=== PATIENT | male | born 1945 | race Caucasian/White ===

== ENCOUNTER 2016-06-22 14:34 | Emergency (ER) | payer MEDICARE ==
[~2016-06-22 14:34] MED LIST: ASPI81CH PO; LOVA40TA PO
[2016-06-22] MEDS ORDERED: IPRATROPIUM 0.5MG/ALBUTEROL 2.5MG INH SOL UD 3ML (DUONEB)(J7620) As Ordered ONE (15:41)
[2016-06-22] MEDS ORDERED: predniSONE 20 MG TAB As Ordered ONE (15:46)
[2016-06-22] MEDS ORDERED: ACETAMINOPHEN 325 MG TAB As Ordered ONE (16:23)
--- NOTE | 2016-06-22 16:35 | EDDOCDS ---
Physician Documentation [facility] Name: Man Amezquita Age: 71 yrs Sex: Male : 1945 Arrival Date: 06/22/2016 Time: 14:34 Bed I5 / M5 Private MD: Gurinder Umanzor M.D. Disposition: 06/22/16 16:11 Discharged to Home/Self Care. Impression: Acute sinusitis, Acute bronchitis, Acute tonsillitis. - Condition is Stable. - Discharge Instructions: Tonsillitis, Wiuf-lu-Jpxv, Sinusitis, Pjks-st-Ynxt, Acute Bronchitis, Umqa-fe-Zjhe. - Prescriptions for Prednisone 20 mg Oral Tablet - take 3 tablet by ORAL route once daily for 5 days; 15 tablet. Claritin 10 mg Oral Tablet - take 1 tablet by ORAL route once daily As needed; 30 tablet. Mucinex 600 mg - take 1 tablet by ORAL route 2 times per day; 30 tablet. Albuterol Sulfate 90 mcg/actuation Inhalation HFA Aerosol Inhaler - inhale 2 puff by INHALATION route every 4 hours As needed; 1 Inhaler. - Medication Reconciliation, Local Pharmacy Hours form. - Follow up: Gurinder Umanzor; When: 1 - 2 days; Reason: Recheck today's complaints, Continuance of care. Follow up: Emergency Department; Reason: Worsening of conditions. - Problem is new. - Symptoms have improved. Historical: - Allergies: No known drug Allergies; - Home Meds: 1. hydrocodone-chlorpheniramine 2.5-2 mg/5 mL oral liqd as needed 2. amoxicillin-pot clavulanate 875-125 mg Oral tab every 12 hours - PMHx: none; - PSHx: TURP; punch biopsy; - Social history: Smoking status: Patient states was never smoker of tobacco. No barriers to communication noted, The patient speaks fluent Kenyan, Speaks appropriately for age. - Family history: Not pertinent. - : The pt / caregiver states he / she is not on anticoagulants. Home medication list is obtained from the patient. - Exposure Risk Screening:: None identified. Vital Signs: 06/22 14:37 BP 173 / 90; Pulse 106; Resp 18 S; Temp 98.0(O); Pulse Ox 96% on R/A; Weight 78.02 kg / dd6 172 lbs (R); Height 5 ft. 8 in. (172.72 cm) (R); 16:25 BP 140 / 84; Pulse 107; Resp 20; Temp 100.3(O); Pulse Ox 92% on R/A; Pain 8/10; jml1 14:37 Body Mass Index 26.15 (78.02 kg, 172.72 cm) dd6 MDM: 15:22 Financial registration complete. lg 15:26 [facility] Payment Agreement was scanned into [employer] and attached to record. lg 15:36 predniSONE 60 mg PO once; administer with food or milk ordered. ef1 15:36 Albuterol-Ipratropium 3 ml Inhalation once ordered. ef1 15:36 Call Respiratory ordered. ef1 15:39 Call Respiratory complete. dls 16:20 Acetaminophen Tablet 975 mg PO once ordered. ef1 Administered Medications: 15:45 Drug: Albuterol-Ipratropium 3 ml [ipratropium-albuterol 0.5 mg-3 mg(2.5 mg base)/3 mL js11 nebulization soln (3 mL)] Route: Inhalation; 15:54 Drug: predniSONE 60 mg [prednisone 20 mg tablet (3 tabs)] Route: PO; dls 16:32 Drug: Acetaminophen 975 mg [acetaminophen 325 mg tablet (3 tabs)] Route: PO; dls Signatures: Tangela Fernandes, JOE RN dls Letitia Mcnulty, Giuseppe Reg lg Yahaira Mckeon, PA-C PA-C ef1 Erin Daniels RN RN hs1 Drake Montague js11 The chart was reviewed and I authenticate all verbal orders and agree with the evaluation and treatment provided.Corrections: (The following items were deleted from the chart) 15:36 15:21 Strep Screen, Nursing ordered. ef1 ef1 Attachments: 15:26 [facility] Payment Agreement lg MTDD
--- NOTE | 2016-06-22 16:35 | EDDOCDS ---
Nurse's Notes [facility] Name: Man Amezquita Age: 71 yrs Sex: Male : 1945 Arrival Date: 06/22/2016 Time: 14:34 Bed I5 / M5 Private MD: Gurinder Umanzor M.D. Diagnosis: Acute sinusitis;Acute bronchitis;Acute tonsillitis Presentation: 06/22 14:49 Presenting complaint: Patient states: recent sore throat low grade fever and was seen hs1 at urgent care. Patient reports unable to sleep recently. patient tried taking azelastine and throat burned and coughed multiple times and was gagging. Patient reports having a hard time swallowing now and hurts. Patient also states was able to get ABX down and Tussinex down before using nose spray. Adult Sepsis Screening: The patient does not have new or worsening altered mentation. Patient's respiratory rate is less than 22. Systolic blood pressure is greater than 100. Patient has a qSOFA score of 0- Negative Sepsis Screen. Suicide/Homicide risk assessment- the patient denies having any suicidal and/or homicidal ideations and does not present with any other emotional, behavioral or mental health complaints. Status: Patient is not a nutritional services director or dependent. Transition of care: patient was not received from another setting of care. 14:49 Acuity: SHANNON Level 4 hs1 14:49 Method Of Arrival: Walkin/Carried/Asstd hs1 Triage Assessment: 14:57 General: Appears in no apparent distress, Behavior is anxious, cooperative. Pain: hs1 Location: throat Quality of pain is described as burning. Neurological: Level of Consciousness is awake, alert, obeys commands. Respiratory: Airway is patent Respiratory effort is even, unlabored, Respiratory pattern is regular, symmetrical. Derm: Skin is pink, warm & dry. normal. Historical: - Allergies: No known drug Allergies; - Home Meds: 1. hydrocodone-chlorpheniramine 2.5-2 mg/5 mL oral liqd as needed 2. amoxicillin-pot clavulanate 875-125 mg Oral tab every 12 hours - PMHx: none; - PSHx: TURP; punch biopsy; - Social history: Smoking status: Patient states was never smoker of tobacco. No barriers to communication noted, The patient speaks fluent Wolof, Speaks appropriately for age. - Family history: Not pertinent. - : The pt / caregiver states he / she is not on anticoagulants. Home medication list is obtained from the patient. - Exposure Risk Screening:: None identified. Screenin:18 Screening information is obtained from the patient. Fall risk: No risks identified. dls Assistance ADL's: requires no assistance with activities of daily living. Abuse/DV Screen: The patient / caregiver reports he/she is: not in a situation that causes fear, pain or injury. Nutritional screening: No deficits noted. Advance Directives: Currently, there is no health care proxy. There is no active DNR order. There is no living will. There is no Power of Transport Tank Technician. Advance directive information has not previously been placed in an [facility] medical record. home support is adequate. Assessment: 15:16 General: Pt brought into exam room pt had choking episode at home after taking dls augmentin and using nasal spray. At present time pt appears anxious lung sounds CTA all lobes pt able to tolerate his own secretions without difficulty family at bedside pt awaiting evaluation by provider.. 15:54 General: Neb treatment completed pt tolerated well medicated pt po per order. Pt dls speaking in full sentences without difficulty.. Vital Signs: 14:37 BP 173 / 90; Pulse 106; Resp 18 S; Temp 98.0(O); Pulse Ox 96% on R/A; Weight 78.02 kg dd6 (R); Height 5 ft. 8 in. (172.72 cm) (R); 16:25 BP 140 / 84; Pulse 107; Resp 20; Temp 100.3(O); Pulse Ox 92% on R/A; Pain 8/10; jml1 14:37 Body Mass Index 26.15 (78.02 kg, 172.72 cm) dd6 Vitals: 14:37 Log In Time: June 22, 2016 at 14:35. dd6 ED Course: 14:37 Patient visited by Brendon Willett PCA. dd6 14:37 Gurinder Umanzor is Private Physician. dd6 14:37 Patient moved to Waiting dd6 14:38 Patient moved to Pre RCE dd6 14:54 Triage Initiated hs1 14:59 Patient moved to I5 / M5 hs1 15:15 [facility] ef1 15:15 Doug Chandler MD is Attending Physician. ef1 15:15 Patient visited by Yahaira Mckeon PA-C. ef1 15:18 The patient / caregiver is instructed regarding the plan of care and ED course. dls Accompanied by Family Member, Patient has correct armband on for positive identification. Bed in low position. Call light in reach. Side rails up X 1. 15:26 Patient name changed from Man\S\Nasir\S\Amezquita\S\ to Man\S\E\S\Amezquita. EDMS 15:26 [facility] Payment Agreement was scanned into [employer] and attached to record. lg 15:46 Patient visited by Yahaira Mckeon PA-C. ef1 16:11 Patient visited by Yahaira Mckeon PA-C. ef1 16:11 Gurinder Umanzor is Referral Physician. ef1 16:26 Patient visited by Jayson Bower. jml1 16:33 No IV's were initiated during this patient's visit. No procedures done that require dls assistance. Administered Medications: 15:45 Drug: Albuterol-Ipratropium 3 ml [ipratropium-albuterol 0.5 mg-3 mg(2.5 mg base)/3 mL js11 nebulization soln (3 mL)] Route: Inhalation; 15:54 Drug: predniSONE 60 mg [prednisone 20 mg tablet (3 tabs)] Route: PO; dls 16:32 Drug: Acetaminophen 975 mg [acetaminophen 325 mg tablet (3 tabs)] Route: PO; dls RT: 15:45 Initial Med Neb Given as ordered Patient was instructed and evaluated on procedure js11 Patient tolerated procedure well without adverse effect. Oxygen is room air. Respiratory: Breath sounds are clear bilaterally. Order Results: There are currently no results for this order. Outcome: 16:11 Discharge ordered by Provider. ef1 16:32 Discharge Assessment: Patient awake, alert and oriented x 3. No cognitive and/or dls functional deficits noted. Patient verbalized understanding of disposition instructions. patient administered narcotics - no. The following High Risk Discharge criteria are identified: None. Discharged to home ambulatory. Condition: stable Condition: improved. Discharge instructions given to patient, Instructed on discharge instructions, follow up and referral plans. medication usage, Demonstrated understanding of instructions, medications, Pt was receptive of discharge instructions/ teaching. Prescriptions given X 4. No special radiology studies were completed. Property sent home with patient. 16:33 Patient left the ED. dls Signatures: Dispatcher [employer] Tangela Parmar, RN RN dls Letitia Mcnulty, Giuseppe Reg lg Brendon Willett, DIRECTOR SALES AND TRADE MARKETING DIRECTOR SALES AND TRADE MARKETING dd6 Yahaira Mckeon, PAMichaelC PA-C ef1 Erin Daniels RN RN hs1 Drake Montague js11 Jayson Bower MTDD
--- NOTE | 2016-06-24 17:34 | EDDOCDS ---
Physician Documentation [facility] Name: Man Amezquita Age: 71 yrs Sex: Male : 1945 Arrival Date: 06/22/2016 Time: 14:34 Bed I5 / M5 Private MD: Gurinder Umanzor M.D. Disposition: 06/22/16 16:11 Discharged to Home/Self Care. Impression: Acute sinusitis, Acute bronchitis, Acute tonsillitis. - Condition is Stable. - Discharge Instructions: Tonsillitis, Pcoi-ge-Jpac, Sinusitis, Ypwy-wq-Vvba, Acute Bronchitis, Etbj-qn-Lpox. - Prescriptions for Prednisone 20 mg Oral Tablet - take 3 tablet by ORAL route once daily for 5 days; 15 tablet. Claritin 10 mg Oral Tablet - take 1 tablet by ORAL route once daily As needed; 30 tablet. Mucinex 600 mg - take 1 tablet by ORAL route 2 times per day; 30 tablet. Albuterol Sulfate 90 mcg/actuation Inhalation HFA Aerosol Inhaler - inhale 2 puff by INHALATION route every 4 hours As needed; 1 Inhaler. - Medication Reconciliation, Local Pharmacy Hours form. - Follow up: Gurinder Umanzor; When: 1 - 2 days; Reason: Recheck today's complaints, Continuance of care. Follow up: Emergency Department; Reason: Worsening of conditions. - Problem is new. - Symptoms have improved. Historical: - Allergies: No known drug Allergies; - Home Meds: 1. hydrocodone-chlorpheniramine 2.5-2 mg/5 mL oral liqd as needed 2. amoxicillin-pot clavulanate 875-125 mg Oral tab every 12 hours - PMHx: none; - PSHx: TURP; punch biopsy; - Social history: Smoking status: Patient states was never smoker of tobacco. No barriers to communication noted, The patient speaks fluent Sri Lankan, Speaks appropriately for age. - Family history: Not pertinent. - : The pt / caregiver states he / she is not on anticoagulants. Home medication list is obtained from the patient. - Exposure Risk Screening:: None identified. Vital Signs: 06/22 14:37 BP 173 / 90; Pulse 106; Resp 18 S; Temp 98.0(O); Pulse Ox 96% on R/A; Weight 78.02 kg / dd6 172 lbs (R); Height 5 ft. 8 in. (172.72 cm) (R); 16:25 BP 140 / 84; Pulse 107; Resp 20; Temp 100.3(O); Pulse Ox 92% on R/A; Pain 8/10; jml1 14:37 Body Mass Index 26.15 (78.02 kg, 172.72 cm) dd6 MDM: 15:22 Financial registration complete. lg 15: [facility] Payment Agreement was scanned into [employer] and attached to record. lg 15:36 predniSONE 60 mg PO once; administer with food or milk ordered. ef1 15:36 Albuterol-Ipratropium 3 ml Inhalation once ordered. ef1 15:36 Call Respiratory ordered. ef1 15:39 Call Respiratory complete. dls 16:20 Acetaminophen Tablet 975 mg PO once ordered. ef1 06/23 12:42 T-Sheet-- Draft Copy was scanned into [employer] and attached to record. gb Administered Medications: 06/22 15:45 Drug: Albuterol-Ipratropium 3 ml [ipratropium-albuterol 0.5 mg-3 mg(2.5 mg base)/3 mL js11 nebulization soln (3 mL)] Route: Inhalation; 15:54 Drug: predniSONE 60 mg [prednisone 20 mg tablet (3 tabs)] Route: PO; dls 16:32 Drug: Acetaminophen 975 mg [acetaminophen 325 mg tablet (3 tabs)] Route: PO; dls Signatures: Tangela Fernandes RN RN dls Sonja Martinez, Reg Reg gb Letitia Mcnulty, Reg Reg lg Yahaira Mckeon, PA-C PA-C ef1 Erin Daniels, RN RN hs1 Drake Montague js11 The chart was reviewed and I authenticate all verbal orders and agree with the evaluation and treatment provided.Corrections: (The following items were deleted from the chart) 15:36 15:21 Strep Screen, Nursing ordered. ef1 ef1 Attachments: 15:26 [facility] Payment Agreement 06/23 12:42 T-Sheet-- Draft Copy gb Chart Complete MTDD
--- NOTE | 2016-06-24 17:34 | EDDOCDS ---
Physician Documentation [facility] Name: Man Amezquita Age: 71 yrs Sex: Male : 1945 Arrival Date: 06/22/2016 Time: 14:34 Bed I5 / M5 Private MD: Gurinder Umanzor M.D. Disposition: 06/22/16 16:11 Discharged to Home/Self Care. Impression: Acute sinusitis, Acute bronchitis, Acute tonsillitis. - Condition is Stable. - Discharge Instructions: Tonsillitis, Jicd-mw-Adux, Sinusitis, Tcum-cw-Wumh, Acute Bronchitis, Nbzj-uf-Uarx. - Prescriptions for Prednisone 20 mg Oral Tablet - take 3 tablet by ORAL route once daily for 5 days; 15 tablet. Claritin 10 mg Oral Tablet - take 1 tablet by ORAL route once daily As needed; 30 tablet. Mucinex 600 mg - take 1 tablet by ORAL route 2 times per day; 30 tablet. Albuterol Sulfate 90 mcg/actuation Inhalation HFA Aerosol Inhaler - inhale 2 puff by INHALATION route every 4 hours As needed; 1 Inhaler. - Medication Reconciliation, Local Pharmacy Hours form. - Follow up: Gurinder Umanzor; When: 1 - 2 days; Reason: Recheck today's complaints, Continuance of care. Follow up: Emergency Department; Reason: Worsening of conditions. - Problem is new. - Symptoms have improved. Historical: - Allergies: No known drug Allergies; - Home Meds: 1. hydrocodone-chlorpheniramine 2.5-2 mg/5 mL oral liqd as needed 2. amoxicillin-pot clavulanate 875-125 mg Oral tab every 12 hours - PMHx: none; - PSHx: TURP; punch biopsy; - Social history: Smoking status: Patient states was never smoker of tobacco. No barriers to communication noted, The patient speaks fluent Slovak, Speaks appropriately for age. - Family history: Not pertinent. - : The pt / caregiver states he / she is not on anticoagulants. Home medication list is obtained from the patient. - Exposure Risk Screening:: None identified. Vital Signs: 06/22 14:37 BP 173 / 90; Pulse 106; Resp 18 S; Temp 98.0(O); Pulse Ox 96% on R/A; Weight 78.02 kg / dd6 172 lbs (R); Height 5 ft. 8 in. (172.72 cm) (R); 16:25 BP 140 / 84; Pulse 107; Resp 20; Temp 100.3(O); Pulse Ox 92% on R/A; Pain 8/10; jml1 14:37 Body Mass Index 26.15 (78.02 kg, 172.72 cm) dd6 MDM: 15:22 Financial registration complete. lg 15: [facility] Payment Agreement was scanned into [employer] and attached to record. lg 15:36 predniSONE 60 mg PO once; administer with food or milk ordered. ef1 15:36 Albuterol-Ipratropium 3 ml Inhalation once ordered. ef1 15:36 Call Respiratory ordered. ef1 15:39 Call Respiratory complete. dls 16:20 Acetaminophen Tablet 975 mg PO once ordered. ef1 06/23 12:42 T-Sheet-- Draft Copy was scanned into [employer] and attached to record. gb Administered Medications: 06/22 15:45 Drug: Albuterol-Ipratropium 3 ml [ipratropium-albuterol 0.5 mg-3 mg(2.5 mg base)/3 mL js11 nebulization soln (3 mL)] Route: Inhalation; 15:54 Drug: predniSONE 60 mg [prednisone 20 mg tablet (3 tabs)] Route: PO; dls 16:32 Drug: Acetaminophen 975 mg [acetaminophen 325 mg tablet (3 tabs)] Route: PO; dls Signatures: Tangela Fernandes RN RN dls Sonja Martinez, Reg Reg gb Letitia Mcnulty, Reg Reg lg Yahaira Mckeon, PA-C PA-C ef1 Erin Daniels, RN RN hs1 Drake Montague js11 The chart was reviewed and I authenticate all verbal orders and agree with the evaluation and treatment provided.Corrections: (The following items were deleted from the chart) 15:36 15:21 Strep Screen, Nursing ordered. ef1 ef1 Attachments: 15:26 [facility] Payment Agreement 06/23 12:42 T-Sheet-- Draft Copy gb Chart Complete MTDD
--- NOTE | 2016-06-24 17:34 | EDDOCDS ---
Nurse's Notes [facility] Name: Man Amezquita Age: 71 yrs Sex: Male : 1945 Arrival Date: 06/22/2016 Time: 14:34 Bed I5 / M5 Private MD: Gurinder Umanzor M.D. Diagnosis: Acute sinusitis;Acute bronchitis;Acute tonsillitis Presentation: 06/22 14:49 Presenting complaint: Patient states: recent sore throat low grade fever and was seen hs1 at urgent care. Patient reports unable to sleep recently. patient tried taking azelastine and throat burned and coughed multiple times and was gagging. Patient reports having a hard time swallowing now and hurts. Patient also states was able to get ABX down and Tussinex down before using nose spray. Adult Sepsis Screening: The patient does not have new or worsening altered mentation. Patient's respiratory rate is less than 22. Systolic blood pressure is greater than 100. Patient has a qSOFA score of 0- Negative Sepsis Screen. Suicide/Homicide risk assessment- the patient denies having any suicidal and/or homicidal ideations and does not present with any other emotional, behavioral or mental health complaints. Status: Patient is not a service electrician or dependent. Transition of care: patient was not received from another setting of care. 14:49 Acuity: SHANNON Level 4 hs1 14:49 Method Of Arrival: Walkin/Carried/Asstd hs1 Triage Assessment: 14:57 General: Appears in no apparent distress, Behavior is anxious, cooperative. Pain: hs1 Location: throat Quality of pain is described as burning. Neurological: Level of Consciousness is awake, alert, obeys commands. Respiratory: Airway is patent Respiratory effort is even, unlabored, Respiratory pattern is regular, symmetrical. Derm: Skin is pink, warm & dry. normal. Historical: - Allergies: No known drug Allergies; - Home Meds: 1. hydrocodone-chlorpheniramine 2.5-2 mg/5 mL oral liqd as needed 2. amoxicillin-pot clavulanate 875-125 mg Oral tab every 12 hours - PMHx: none; - PSHx: TURP; punch biopsy; - Social history: Smoking status: Patient states was never smoker of tobacco. No barriers to communication noted, The patient speaks fluent Spanish, Speaks appropriately for age. - Family history: Not pertinent. - : The pt / caregiver states he / she is not on anticoagulants. Home medication list is obtained from the patient. - Exposure Risk Screening:: None identified. Screenin:18 Screening information is obtained from the patient. Fall risk: No risks identified. dls Assistance ADL's: requires no assistance with activities of daily living. Abuse/DV Screen: The patient / caregiver reports he/she is: not in a situation that causes fear, pain or injury. Nutritional screening: No deficits noted. Advance Directives: Currently, there is no health care proxy. There is no active DNR order. There is no living will. There is no Power of Comic Illustrator. Advance directive information has not previously been placed in an [facility] medical record. home support is adequate. Assessment: 15:16 General: Pt brought into exam room pt had choking episode at home after taking dls augmentin and using nasal spray. At present time pt appears anxious lung sounds CTA all lobes pt able to tolerate his own secretions without difficulty family at bedside pt awaiting evaluation by provider.. 15:54 General: Neb treatment completed pt tolerated well medicated pt po per order. Pt dls speaking in full sentences without difficulty.. Vital Signs: 14:37 BP 173 / 90; Pulse 106; Resp 18 S; Temp 98.0(O); Pulse Ox 96% on R/A; Weight 78.02 kg dd6 (R); Height 5 ft. 8 in. (172.72 cm) (R); 16:25 BP 140 / 84; Pulse 107; Resp 20; Temp 100.3(O); Pulse Ox 92% on R/A; Pain 8/10; jml1 14:37 Body Mass Index 26.15 (78.02 kg, 172.72 cm) dd6 Vitals: 14:37 Log In Time: June 22, 2016 at 14:35. dd6 ED Course: 14:37 Patient visited by Brendon Willett PCA. dd6 14:37 Gurinder Umanzor is Private Physician. dd6 14:37 Patient moved to Waiting dd6 14:38 Patient moved to Pre RCE dd6 14:54 Triage Initiated hs1 14:59 Patient moved to I5 / M5 hs1 15:15 [facility]ke[facility] ef1 15:15 Doug Chandler MD is Attending Physician. ef1 15:15 Patient visited by Yahaira Mckeon PA-C. ef1 15:18 The patient / caregiver is instructed regarding the plan of care and ED course. dls Accompanied by Family Member, Patient has correct armband on for positive identification. Bed in low position. Call light in reach. Side rails up X 1. 15:26 Patient name changed from Man\S\Nasir\S\Amezquita\S\ to Man\S\E\S\Amezquita. EDMS 15:26 [facility] Payment Agreement was scanned into [employer] and attached to record. lg 15:46 Patient visited by Yahaira Mckeon PA-C. ef1 16:11 Patient visited by Yahaira Mckeon PA-C. ef1 16:11 Gurinder Umanzor is Referral Physician. ef1 16:26 Patient visited by Jayson Bower. jml1 16:33 No IV's were initiated during this patient's visit. No procedures done that require dls assistance. 06/23 12:42 T-Sheet-- Draft Copy was scanned into [employer] and attached to record. gb Administered Medications: 06/22 15:45 Drug: Albuterol-Ipratropium 3 ml [ipratropium-albuterol 0.5 mg-3 mg(2.5 mg base)/3 mL js11 nebulization soln (3 mL)] Route: Inhalation; 15:54 Drug: predniSONE 60 mg [prednisone 20 mg tablet (3 tabs)] Route: PO; dls 16:32 Drug: Acetaminophen 975 mg [acetaminophen 325 mg tablet (3 tabs)] Route: PO; dls RT: 15:45 Initial Med Neb Given as ordered Patient was instructed and evaluated on procedure js11 Patient tolerated procedure well without adverse effect. Oxygen is room air. Respiratory: Breath sounds are clear bilaterally. Order Results: There are currently no results for this order. Outcome: 16:11 Discharge ordered by Provider. ef1 16:32 Discharge Assessment: Patient awake, alert and oriented x 3. No cognitive and/or dls functional deficits noted. Patient verbalized understanding of disposition instructions. patient administered narcotics - no. The following High Risk Discharge criteria are identified: None. Discharged to home ambulatory. Condition: stable Condition: improved. Discharge instructions given to patient, Instructed on discharge instructions, follow up and referral plans. medication usage, Demonstrated understanding of instructions, medications, Pt was receptive of discharge instructions/ teaching. Prescriptions given X 4. No special radiology studies were completed. Property sent home with patient. 16:33 Patient left the ED. dls Signatures: Dispatcher [employer] Tangela Parmar, RN RN dls Sonja Martinez, Reg Reg gb Letitia Mcnulty, Reg Reg lg Brendon Willett, LEGAL ADMINISTRATIVE ASSISTANT LEGAL ADMINISTRATIVE ASSISTANT dd6 Yahaira Mckeon PA-C PA-C ef1 Erin Daniels, RN RN hs1 Drake Montague js11 Jayson Bower Chart Complete MTDD
== END 2016-06-22 16:33 | disposition home or self-care (01) ==
LOC: M ED 14:34
DX: J03.90 Acute tonsillitis, unspecified (principal); J01.90 Acute sinusitis, unspecified; J20.9 Acute bronchitis, unspecified

== ENCOUNTER → 2017-11-15 | Outpatient (REF) | payer MEDICARE ==
[2017-11-15 14:58] LABS: PHOSPHORUS LEVEL 3.2 MG/DL (2.5-4.9)
== END ==
LOC: M LAB REF 13:04
DX: C84.00 Mycosis fungoides, unspecified site (principal)
CPT/HCPCS: 84100

== ENCOUNTER → 2018-10-04 | Outpatient (CLI) | payer MEDICARE ==
[~2018-10-04] MED LIST changes: -ASPI81CH PO; +ASPI81CH49 PO
--- NOTE | 2018-10-04 17:37 | REP ---
HISTORY: Hip pain times 4 days. COMPARISON: None. There is mild asymmetric hip joint space narrowing with mild buttressing. There is no acute fracture, dislocation or subluxation. IMPRESSION: Chronic changes as described above. Electronically Signed by Bruce Oneil DO 10/05/2018 10:21 A
== END ==
LOC: M WUC 16:14
PROVIDERS: ATTEND Physician Assistant
DX: M70.62 Trochanteric bursitis, left hip (principal)

== ENCOUNTER → 2019-07-25 | Outpatient (REF) | payer MEDICARE ==
[2019-07-25 18:30] LABS: C REACTIVE PROTEIN QUANTITATIV 0.52 MG/DL (0.00-0.30); TOTAL PROTEIN 7.3 GM/DL (6.4-8.2)
[2019-07-27 10:52] LABS: ALBUMIN 4.47 GM/DL (3.29-5.55); ALBUMIN % 61.3 % (55.8-66.1); ALPHA-1-GLOBULIN % 4.1 % (2.9-4.9); ALPHA-2-GLOBULINS 0.91 GM/DL (0.42-0.99); ALPHA-2-GLOBULINS % 12.4 % (7.1-11.8); BETA-1-GLOBULINS 0.42 GM/DL (0.28-0.60); BETA-1-GLOBULINS % 5.7 % (4.7-7.2); BETA-2-GLOBULINS 0.31 GM/DL (0.19-0.55); BETA-2-GLOBULINS % 4.2 % (3.2-6.5); GAMMA GLOBULIN % 12.3 % (11.1-18.8)
[2019-07-28 10:33] LABS: HEPATITIS C VIRUS ABY INDEX < 0.0 INDEX (<0.8)
[2019-07-31 00:06] LABS: CYCLIC CITRULLINATED PEPTIDE 8 units (0-19); SSA SJOGRENS A <0.2 AI (0.0-0.9); SSB SJOGRENS B <0.2 AI (0.0-0.9)
== END ==
LOC: M SFHCRHEU 12:05
PROVIDERS: ATTEND Internal Medicine
DX: R76.8 Other specified abnormal immunological findings in serum (principal); R79.82 Elevated C-reactive protein (CRP)
CPT/HCPCS: 36415; 84165; 85652; 86140; 86200; 86235; 86431; 86803; 87902; G0463

== ENCOUNTER → 2019-10-31 | Outpatient (REF) | payer MEDICARE | LOC: M LAB REF 08:57 | PROVIDERS: ATTEND Dermatology | DX: D04.5 Carcinoma in situ of skin of trunk (principal); L57.0 Actinic keratosis ==

== ENCOUNTER → 2019-11-08 | Outpatient (REF) | payer MEDICARE | LOC: M LAB REF 10:28 | PROVIDERS: ATTEND Dermatology | DX: L90.5 Scar conditions and fibrosis of skin (principal) ==

== ENCOUNTER → 2022-09-18 | Outpatient (REF) | payer MEDICARE | LOC: M SFHCDERM 17:16 | PROVIDERS: ATTEND Nurse Practitioner Family | DX: D23.5 Other benign neoplasm of skin of trunk (principal) ==

== ENCOUNTER → 2023-04-02 | Outpatient (REF) | payer MEDICARE | LOC: M SFHCDERM 17:42 | PROVIDERS: ATTEND Nurse Practitioner Family | DX: L57.0 Actinic keratosis (principal); L57.8 Other skin changes due to chronic exposure to nonionizing radiation ==

== ENCOUNTER → 2023-12-30 | Outpatient (REF) | payer MEDICARE | LOC: M SFHCDERM 12:53 | PROVIDERS: ATTEND Nurse Practitioner Family | DX: L85.9 Epidermal thickening, unspecified (principal) ==

== ENCOUNTER → 2024-02-08 | Outpatient (REF) | payer MEDICARE | LOC: M SFHCDERM 17:03 | PROVIDERS: ATTEND Dermatology | DX: Z51.89 Encounter for other specified aftercare (principal) ==

== ENCOUNTER 2024-03-05 16:17 | Emergency (ER) | payer MEDICARE ==
[~2024-03-05] VITALS: Ht 170.2 cm; Wt 74.4 kg
[2024-03-05] MEDS: NS 500 ML IV ONE (17:30)
[2024-03-05 18:07] LABS: BASO % 0.3 % (0.0-1.0); EOS % 0.2 % (0.0-3.0); HEMATOCRIT 49.2 % (42.0-52.0); HEMOGLOBIN 17.3 g/dl (13.5-17.5); LYMPH # 1.1 10^3/uL (1.5-5.0); LYMPH % 9.9 % (24.0-44.0); MEAN CORPUSCULAR HEMOGLOBIN 32.5 pg (27.0-33.0); MEAN CORPUSCULAR HGB CONC 35.2 g/dl (32.0-36.5); MEAN CORPUSCULAR VOLUME 92.3 fl (80.0-96.0); MONO # 1.1 10^3/uL (0.0-0.8); MONO % 9.8 % (2.0-8.0); NEUTROPHILS % 79.4 % (36.0-66.0); PLATELET COUNT, AUTOMATED 216 10^3/uL (150-450); RED BLOOD COUNT 5.33 10^6/uL (4.30-6.10); WHITE BLOOD COUNT 11.4 10^3/uL (4.0-10.0)
[2024-03-05 18:08] LABS: OSMOLALITY SERUM 302 MOSM/KG (280-301)
[2024-03-05 18:23] LABS: VENOUS BASE EXCESS 0.8 (-2.0-2.0); VENOUS HCO3 26.7 MMOL/L (23.0-27.0); VENOUS O2 SATURATION 50.7 % (60.0-80.0); VENOUS PARTIAL PRESSURE CO2 46.7 mmHg (38.0-50.0); VENOUS PH 7.375 UNITS (7.330-7.430); VENOUS STANDARD HCO3 23.8 MMOL/L; VENOUS TOTAL CO2 28.1 MMOL/L (24.0-28.0)
[2024-03-05 18:24] LABS: THYROID STIMULATING HORMONE 1.045 uIU/ML (0.55-4.78)
[2024-03-05 18:32] LABS: ALBUMIN 4.2 G/DL (3.2-5.2); ALKALINE PHOSPHATASE 43 U/L (46-116); ALT/SGPT 70 U/L (7.0-40); AST/SGOT 64 U/L (<34); BILIRUBIN,DIRECT 0.1 MG/DL (<0.4); BILIRUBIN,TOTAL 0.4 MG/DL (0.3-1.2); BLOOD UREA NITROGEN 19 MG/DL (9-23); CALCIUM LEVEL 9.7 MG/DL (8.3-10.6); CARBON DIOXIDE LEVEL 27 MMOL/L (20-31); CHLORIDE LEVEL 108 MMOL/L (98-107); GLOMERULAR FILTRATION RATE > 60.0 (>42); GLUCOSE, FASTING 98 MG/DL (74-106); POTASSIUM SERUM 5.1 MMOL/L (3.5-5.1); SODIUM LEVEL 141 MMOL/L (136-145); TOTAL PROTEIN 7.5 G/DL (5.7-8.2)
[2024-03-05] MEDS ORDERED: ASPI81TA26 PO (22:17)
[2024-03-05] MEDS ORDERED: MYSO50TA5 PO (22:17)
[2024-03-05] MEDS ORDERED: ALEV220T22 PO (22:17)
[2024-03-05] MEDS ORDERED: HOME MED LIST COMPLETE! XX SCH (22:20)
[2024-03-05 22:50] VITALS: TEMP 98
[2024-03-06 01:15] VITALS: BP 144/81; O2SAT 96
[2024-03-07] MEDS ORDERED: FLOM0.4C39 PO (19:10)
[2024-03-07] MEDS ORDERED: KETO10TAB PO (19:10)
== END 2024-03-06 01:35 | disposition home or self-care (01) ==
LOC: M ED 16:17
DX: R53.1 Weakness (principal); M51.361 Other intervertebral disc degeneration, lumbar region with lower extremity pain only; M51.26 Other intervertebral disc displacement, lumbar region; M48.061 Spinal stenosis, lumbar region without neurogenic claudication; E78.5 Hyperlipidemia, unspecified; Z79.82 Long term (current) use of aspirin; Z79.899 Other long term (current) drug therapy

== ENCOUNTER 2024-03-07 15:07 | Emergency (ER) | payer MEDICARE ==
[~2024-03-07] VITALS: Ht 170.2 cm; Wt 75.2 kg
[~2024-03-07 15:07] MED LIST changes: +ALEV220T22 PO; +ASPI81TA26 PO; +MYSO50TA5 PO
[2024-03-07 16:52] LABS: BASO % 0.3 % (0.0-1.0); EOS % 0.3 % (0.0-3.0); HEMATOCRIT 47.5 % (42.0-52.0); HEMOGLOBIN 16.3 g/dl (13.5-17.5); LYMPH # 1.2 10^3/uL (1.5-5.0); MEAN CORPUSCULAR HEMOGLOBIN 32.2 pg (27.0-33.0); MEAN CORPUSCULAR HGB CONC 34.3 g/dl (32.0-36.5); MEAN CORPUSCULAR VOLUME 93.9 fl (80.0-96.0); MONO # 1.1 10^3/uL (0.0-0.8); MONO % 8.6 % (2.0-8.0); NEUTROPHILS % 80.6 % (36.0-66.0); PLATELET COUNT, AUTOMATED 174 10^3/uL (150-450); RED BLOOD COUNT 5.06 10^6/uL (4.30-6.10); WHITE BLOOD COUNT 12.4 10^3/uL (4.0-10.0)
[2024-03-07] MEDS: KETOROLAC 30 MG/ML 1ML VIAL IV ONE (17:04)
[2024-03-07 17:24] LABS: ALBUMIN 3.8 G/DL (3.2-5.2); BILIRUBIN,DIRECT 0.2 MG/DL (<0.4); BILIRUBIN,TOTAL 0.6 MG/DL (0.3-1.2); CALCIUM LEVEL 9.2 MG/DL (8.3-10.6); CREATININE FOR GFR 1.51 MG/DL (0.70-1.30); GLOMERULAR FILTRATION RATE 47.8 (>42); TOTAL PROTEIN 7.1 G/DL (5.7-8.2)
[2024-03-07] MEDS ORDERED: FLOM0.4C39 PO (19:10)
[2024-03-07] MEDS ORDERED: KETO10TAB PO (19:10)
[2024-03-07 19:31] VITALS: BP 147/73; TEMP 98.6; O2SAT 95
== END 2024-03-07 19:35 | disposition home or self-care (01) ==
LOC: M ED 15:07
DX: N20.1 Calculus of ureter (principal); I31.39 Other pericardial effusion (noninflammatory); E78.5 Hyperlipidemia, unspecified; M54.50 Low back pain, unspecified; Z87.442 Personal history of urinary calculi; Z79.82 Long term (current) use of aspirin; Z79.811 Long term (current) use of aromatase inhibitors; Z79.899 Other long term (current) drug therapy
CPT/HCPCS: 74176; 80047; 80048; 80076; 81001; 83690; 85025; 96374; 99284; J1885

== ENCOUNTER → 2024-03-23 | Outpatient (REF) | payer MEDICARE ==
[~2024-03-23] MED LIST changes: +FLOM0.4C39 PO; +KETO10TAB PO
== END ==
LOC: M SMT 17:07
PROVIDERS: ATTEND Specialist
DX: N20.0 Calculus of kidney (principal)

== ENCOUNTER → 2024-05-05 | Outpatient (REF) | payer MEDICARE | LOC: M SFHCDERM 17:43 | PROVIDERS: ATTEND Nurse Practitioner Family | DX: L82.1 Other seborrheic keratosis (principal) ==

== ENCOUNTER → 2024-05-22 | Outpatient (REF) | payer MEDICARE | LOC: M SFHCDERM 17:28 | PROVIDERS: ATTEND Physician Assistant | DX: Z51.89 Encounter for other specified aftercare (principal) ==

== ENCOUNTER → 2024-05-30 | Outpatient (REF) | payer MEDICARE ==
[2024-06-01 14:32] LABS: FOLATE 18.3 NG/ML (>5.4)
== END ==
LOC: M LAB REF 12:50
PROVIDERS: ATTEND Family Medicine
DX: R41.3 Other amnesia (principal)

== ENCOUNTER 2024-09-28 19:29 | Emergency (ER) | payer MEDICARE ==
[~2024-09-28] VITALS: Ht 172.7 cm; Wt 77.1 kg
[~2024-09-28 19:29] MED LIST changes: -FLOM0.4C39 PO; +TAMS-18 PO
[2024-09-28 20:17] LABS: BASO # 0.1 10^3/uL (0.0-0.2); BASO % 0.8 % (0.0-1.0); EOS # 0.1 10^3/uL (0.0-0.5); EOS % 0.8 % (0.0-3.0); HEMATOCRIT 46.1 % (42.0-52.0); HEMOGLOBIN 15.9 g/dl (13.5-17.5); LYMPH # 1.5 10^3/uL (1.5-5.0); LYMPH % 20.1 % (24.0-44.0); MEAN CORPUSCULAR HEMOGLOBIN 32.2 pg (27.0-33.0); MEAN CORPUSCULAR HGB CONC 34.5 g/dl (32.0-36.5); MEAN CORPUSCULAR VOLUME 93.3 fl (80.0-96.0); MONO # 0.6 10^3/uL (0.0-0.8); MONO % 8.6 % (2.0-8.0); NEUTROPHILS % 69.6 % (36.0-66.0); PLATELET COUNT, AUTOMATED 208 10^3/uL (150-450); RED BLOOD COUNT 4.94 10^6/uL (4.30-6.10); WHITE BLOOD COUNT 7.2 10^3/uL (4.0-10.0)
[2024-09-28 20:28] LABS: INR 0.96; PARTIAL THROMBOPLASTIN TIME 26.6 SECONDS (24.8-34.2); PROTHROMBIN TIME 13.1 SECONDS (12.5-14.5)
[2024-09-28 20:42] LABS: BLOOD UREA NITROGEN 15 MG/DL (9-23); CALCIUM LEVEL 9.2 MG/DL (8.3-10.6); CARBON DIOXIDE LEVEL 31 MMOL/L (20-31); CHLORIDE LEVEL 105 MMOL/L (98-107); CREATININE FOR GFR 1.05 MG/DL (0.70-1.30); GLOMERULAR FILTRATION RATE 72.2 (>42); GLUCOSE, FASTING 160 MG/DL (74-106); SODIUM LEVEL 143 MMOL/L (136-145)
[2024-09-28 21:14] LABS: CK-MB VALUE MASS < 1.0 NG/ML (<3.6)
[2024-09-28 21:15] LABS: CPK CREATINE PHOSPHOKINASE 78 U/L (46-171); MB/CK RELATIVE INDEX 1.28 (< OR =4)
[2024-09-28 21:56] LABS: KETONE, URINE AUTO RFX NEGATIVE (NEGATIVE); LEUKOCYTE ESTERASE UR AUTO RFX NEGATIVE (NEGATIVE); MUCUS, URINE RFX LARGE (NEGATIVE); NITRITE, URINE AUTO RFX NEGATIVE (NEGATIVE); RBC, URINE AUTO RFX 2 /HPF (0-3); SQUAM EPITHELIAL CELL UR AURFX 0 /HPF (0-6); WBC, URINE AUTO RFX 1 /HPF (0-3)
[2024-09-28 22:10] LABS: CK-MB VALUE MASS < 1.0 NG/ML (<3.6)
[2024-09-28 22:12] LABS: CPK CREATINE PHOSPHOKINASE 89 U/L (46-171); MB/CK RELATIVE INDEX 1.12 (< OR =4)
[2024-09-28 22:56] VITALS: BP 140/87; TEMP 97.1; O2SAT 99
[2024-09-28] MEDS: NS (Normal Saline) 0.9% 1,000 ML IV ONE (23:00)
== END 2024-09-28 23:12 | disposition home or self-care (01) ==
LOC: M ED 19:29
DX: R42 Dizziness and giddiness (principal); E78.5 Hyperlipidemia, unspecified; F10.10 Alcohol abuse, uncomplicated; M54.50 Low back pain, unspecified; Z86.79 Personal history of other diseases of the circulatory system; Z79.82 Long term (current) use of aspirin; Z79.899 Other long term (current) drug therapy